=== PATIENT | male | born 1970 | race Caucasian/White ===

== ENCOUNTER 2019-12-15 12:07 | Day surgery (SDC) | payer OTHER, SELFPAY ==
[2019-12-15] VITALS (11 sets, daily range): BP systolic 105–162; BP diastolic 76–99; PULSE 58–101; RESP 16–22; TEMP 36.7–37; O2SAT 95–98; BMI 25.4
--- NOTE | 2019-12-15 12:11 | ED_ITS ---
Entered by Bradley Avina, acting as scribe for Kosta Baron DO HPI - Extremity Problem General: Chief complaint: Extremity Injury, Upper Stated complaint: partial finger amputation Time Seen by Provider: 12/15/19 12:19 History of Present Illness: HPI Narrative: 49 yo male presents with right hand injury, he amputated his right index and right middle finger, R 4th finger tips. Pt states that he was using a grinder operator surface tool and his hand got sucked up into it. Patient has amputated portions of the finger however they are rather small did not appear to be salvageable. MD Complaint: extremity pain Pain Consistency: constant Location: right and upper extremity Associated symptoms: Deny chest pain, fever(s) or rash Review of Systems General: Reports: other (Last meal at 5:30 AM) Const: Denies: fever, chills, body aches, fatigue, malaise or night sweats Eyes: Denies: change in vision or blurry vision ENMT: Denies: throat pain, oral sores/lesions, dental pain, nasal discharge or nasal congestion Card: Denies: chest pain, palpitations, irregular heart rhythm, edema, syncope, shortness of breath on exertion, shortness of breath when lying down or leg pain with exertion Resp: Denies: shortness of breath, productive cough, non-productive cough or wheezing GI: Denies: abdominal pain, nausea, vomiting, vomiting blood, coffee grounds in vomit, difficulty swallowing, heartburn/indigestion, diarrhea, constipation, cramping, blood in stool or black tarry stool : Denies: flank pain, difficulty urinating, painful urination, urinary frequency, urinary urgency, urinary incontinence or blood in urine Skin/Breast: Denies: rash, itching or redness Neuro: Denies: headache, numbness in extremities, weakness in extremities, changes in sensation, lack of coordination, difficulty walking, frequent falls, dizziness, vertigo or confusion Psych: Denies: anxiety, depression, loss of interest, visual hallucinations, auditory hallucinations, suicidal ideation or homicidal ideation Endo: Denies: excessive urination, excessive thirst, tired all the time or cold intolerance Truman/Lymph: Denies: easy bruising, easy bleeding, petechiae, enlarged lymph n odes or tender lymph nodes PFSH ED PFSH: Statuses (acute, chronic, etc) shown below reflect problem list status as previously entered and may not be historically accurate Medical History Traumatic amputation of multiple fingers (Acute) Surgical History H/O removal of cyst (Acute) History of repair of ACL (Acute) Social History Smoking and tobacco status: never smoked Physical Exam Const: COMMON NORMALS: average body habitus, oriented x3 and alert GENERAL APPEARANCE: cooperative, comfortable, well kempt and well developed NUTRITIONAL APPEARANCE: not obese ORIENTATION/CONSCIOUSNESS: Yes awake, Yes oriented to person and Yes oriented to place HENMT: COMMON NORMALS: normocephalic, head/scalp atraumatic, EAC's normal, TM's normal bilaterally, external nose normal, moist oral mucous membranes and oropharynx normal HEAD & SCALP: normocephalic and atraumatic NOSE: external nose normal EXTERNAL AUDITORY CANAL: EAC's normal TYMPANIC MEMBRANE: TM's normal bilaterally MOUTH: oral and palatal mucosa normal, lip normal and tongue normal THROAT: posterior oropharynx normal and tonsils normal Eye: COMMON NORMALS: PERRL, EOMs intact bilaterally, conjunctivae normal and no scleral icterus CONJUNCTIVA: Yes conjunctivae normal PUPIL: Yes PERRL Neck/C-Spine: COMMON NORMALS: full ROM, no lymphadenopathy, supple, no meningeal signs and thyroid normal THYROID: thyroid normal and asymmetrical Lymph: LYMPHATIC: no lymphadenopathy noted Resp: COMMON NORMALS: normal respiratory effort, no retractions, no use of accessory muscles and clear to auscultation bilaterally AUSCULTATION: clear to auscultation bilaterally Cardio: COMMON NORMALS: regular rate and regular rhythm RATE: regular rate RHYTHM: regular rhythm HEART SOUNDS: no murmurs GI: COMMON NORMALS: normal to inspection, nondistended, normoactive bowel sounds, soft to palpation and no hepatosplenomegaly PALPATION: Yes soft and Yes no hepatosplenomegaly : COMMON NORMALS: Yes no CVA tenderness BLADDER/KIDNEY EXAM: Yes no CVA tenderness Back/Pelvis: COMMON NORMALS: no CVA tenderness LUMBAR SPINE/LOWER BACK: Yes normal to inspection Extremity: NARRATIVE EXTREMITY EXAM: The tips of the right second third and fourth fingers have essentially been surgically amputated with clean lines across the bone. There is expound exposed cortex of bone no significant bleeding at this time. Neuro: COMMON NORMALS: oriented x3 SENSORIUM/ORIENTATION: Yes alert, Yes oriented to person and Yes oriented to place MENINGEAL SIGNS: Yes no meningeal signs Psych: APPEARANCE: Yes well kempt Skin: COMMON NORMALS: no rashes or lesions noted and skin turgor normal GENERAL SKIN EXAM: no rashes or lesions noted and turgor normal Course ED course: Patient had tetanus updated given a gram of Ancef pain medications nausea medications IV fluids. Discussed Dr. Reyes he will take the patient directly from ER to outpatient surgery will revise the amputation and create stump with soft tissue coverage. Vital Signs: Vital signs: Vital Signs Temperature 98.4 F 12/15/19 12:14 Pulse Rate 58 L 12/15/19 13:49 Respiratory Rate 16 12/15/19 13:49 Blood Pressure 146/80 12/15/19 13:49 Pulse Oximetry 98 12/15/19 13:49 Discharge Plan Discharge Patient Disposition: Home, Self-Care Clinical Impression: Traumatic amputation of multiple fingers Prescriptions: No Action No Known Home Medications RF: 0 Referrals: Yana Tinoco MD [Primary Care Provider] - Larry Grewal MD [Family Provider] - Activity Restrictions/Additional Instructions: You will be discharged from the emergency room and taken to outpatient surgery will they will provide definitive care for the amputation of the fingertips Dr. Reyes will provide discharge instructions from outpatient surgery. Interventions: ED Discharge Assessment Last Done: 12/15/19 13:49 Discharge Date/Time: 12/15/19 13:50 Coding Level of Care Code ED Computer Forensic Specialist for Chg Fwd Exam Problem Focused The documentation recorded by the Fabrice kemp Kialy, accurately reflects the service I personally performed and the decisions made by , Kosta Baron, Dec 15, 2019 12:07
--- NOTE | 2019-12-15 12:16 | XR_ITS ---
WS: [id number] RIGHT HAND: 3 VIEW(S) TECHNIQUE: PA, oblique and lateral. HISTORY: amputation fingers COMPARISON: None available. Limited evaluation of the fingers. Fingers are held in a flexed position therefore there is overlappi ng bone. Suspicious for amputations involving the terminal tuft of the second, third and fourth finge rs. This can be better evaluated if the fingers can be straightened. Extensive soft tissue edema and bandage material around the fingers. No foreign body. XR/XR hand RT min 3V* [id number] IMPRESSION: Limited evaluation of the fingers due to flexed position. Suspect traumatic amputation involving the terminal jessica of the second, third and fourth fingers. To confirm findings additional radiographic imaging can be performed when the patient's fingers are not bandaged.
[2019-12-15] MEDS: ceFAZolin 1,000 MG in sodium chloride 0.9% (plus) 50 ML 100 MG IV (12:38)
[2019-12-15] MEDS: ondansetron 2 mg/ML SDV 2 mL 4 MG IVP (12:38)
[2019-12-15] MEDS: sodium chloride 0.9% 1,000 ML 999 ML IV (12:38)
[2019-12-15] MEDS: morphine 4 mg/mL SDV 1 mL IVP (12:39)
[2019-12-15] MEDS: tetanus-diphtheria tox (adult) 0.5 mL SDV IM (12:40)
--- NOTE | 2019-12-15 13:45 | P.HP_ITS ---
Providers/Chief Complaint Primary Care Provider: Yana Tinoco Chief Complaint: partial finger amputation History of Present Illness Francesco Acuna is a 49 year old male who was at work and sustained multiple amputations at the level of the DIP joint of the right index long and ring fingers. Date of injury was today. His tetanus status is been updated by emergency room physicians. Review of Systems Eyes: Reports: other (glasses) Card: Reports: other (no history of heart attack/coronary disease); Denies: chest pain Resp: Denies: shortness of breath or productive cough GI: Reports: other (patient has been nothing by mouth for multiple hours); Denies: nausea or vomiting Musc: Reports: extremity pain (due to amputations of right index long and ring fingers) Medications/Allergies Home Medications Medication Instructions Recorded Confirmed Last Taken Type No Known Home Medications 12/15/19 12/15/19 Unknown History Allergies Allergy/AdvReac Type Severity Reaction Status Date / Time No Known Allergies Allergy Verified 12/15/19 12:18 PFSH PFSH: Statuses (acute, chronic, etc) shown below reflect problem list status as previously entered and may not be historically accurate Medical History Traumatic amputation of multiple fingers (Acute) Surgical History H/O removal of cyst (Acute) History of repair of ACL (Acute) Social History Smoking and tobacco status: never smoked Vital Signs Vitals Signs: Last Vital Signs Temp 98.4 F 12/15/19 12:14 Pulse 64 12/15/19 12:14 Resp 18 12/15/19 12:39 BP 162/99 12/15/19 12:14 Pulse Ox 95 12/15/19 12:39 Weight: Weight last 48 hrs Weight 177 lb Physical Exam Const: COMMON NORMALS: healthy appearing, alert and well nourished GENERAL APPEARANCE: cooperative and in distress (mild); not ill appearing and does not appear older than stated age ORIENTATION/CONSCIOUSNESS: Yes awake Neck/C-Spine: GENERAL: Yes trachea midline THYROID: thyroid normal Resp: COMMON NORMALS: normal respiratory effort, no retractions, no use of accessory muscles and clear to auscultation bilaterally AUSCULTATION: clear to auscultation bilaterally, no crackles, no rales, no rhonchi and no wheezes Cardio: COMMON NORMALS: no JVD, regular rate, regular rhythm, S1 normal heart sound and S2 normal heart sound; negative for no murmurs Extremity: NARRATIVE EXTREMITY EXAM: dressing covering right hand which obscures amputations of right index long and ring fingers that are noted by history from emergency physician also x-ray studies RIGHT UPPER EXTREMITY: Yes hand & digits (amputations right index long and ring fingers) Neuro: COMMON NORMALS: oriented x3 SENSORIUM/ORIENTATION: Yes alert, Yes oriented to person and Yes oriented to place Data Imaging^: Xray Ortho: My impression: multiple digital amputations through the distal aspect of the right index long and ring fingers Radiologist's impression: Limited evaluation of the fingers due to flexed position. Suspect traumatic amputation involving the terminal jessica of the second, third and fourth fingers. To confirm findings additional radiographic imaging can be performed when the patient's fingers are not bandaged. A&P Additional A&P Information multiple digit amputations involving the right index long and ring fingers Plan will be to take the patient to surgery today on urgent basis to revise the amputations of the right index long and ring fingers. Tetanus status is been updated by emergency room physician I discussed the patient receiving an axillary block for postoperative pain relief. Coding Level of Care Code Acute Fingerprinter for Jacky Syed
--- NOTE | 2019-12-15 14:03 | ANES.PREANES ---
Pre-Anesthetic Assessment Pre-Anesthetic Assessment: Height/Weight: Height 1.78 m Weight 80.286 kg Temp Pulse Resp BP Pulse Ox 98.4 F 58 L 16 146/80 98 12/15/19 12:14 12/15/19 13:49 12/15/19 13:49 12/15/19 13:49 12/15/19 13:49 Preop Diagnosis: multiple finger amputations right hand Proposed Procedure: Operation Date: 12/15/19 15:30 Proposed Procedures p Amputation Fingers revision(Right) - Willie Reyes DO Familial anesthetic complications: No trouble anesthesia Was Beta Ritchie taken within 24 hours: N/A Last intake: 0530 am (smoothie); black coffee at 0900 Social: Social History: No alcohol and No tobacco Exam: Pre-Anes Outpt Exam: alert, oriented x 3, clear to auscultation bilaterally and regular rate & rhythm Airway: Cervical ROM: WNL MP: 2 Dentition: Chipped Additional comments: missing Pulmonary: Pulmonary: None reported CV/HEM: CV/HEM: None reported : : None reported Hepatic: Hepatic: None reported GI: GI: None reported Metabolic: Metabolic: None reported Musc/skel: Musc/skel: None reported Neuropsych: Neuropsych: None reported Anesthetic Plan: ASA status: I Anesthesia: General and Regional (specify below) PFSH Anesthesia PFSH: Medical History Traumatic amputation of multiple fingers (Acute) Surgical History H/O removal of cyst (Acute) History of repair of ACL (Acute) Social History Smoking and tobacco status: never smoked Data Anesthesia Cardiac Studies: No Data to Display
[2019-12-15] MEDS: sodium chloride 0.9% 1,000 ML 30 ML IV (14:18)
[2019-12-15] MEDS: midazolam 1 mg/mL INJ 2 mL 2 MG IVP (14:21)
--- NOTE | 2019-12-15 14:37 | ANES.PROC ---
Anesthesia Procedures Procedure/Date: 12/15/19 Nerve Block ^: Nerve Block 1: Main Anesthesia: general anesthesia Time Out Performed: Yes Consent: requested by attending/covering physician, risks and benefits reviewed and patient agrees to proceed Nerve block location: axillary (R) Anesthesia monitors applied: pulse oximetry Nerve block position: supine Anesthetic Used: ropivicaine 0.5% and with decadron (4) Amount of anesthesia used (mL): 30 Ultrasound used to: recognize landmarks Nerve Stimulator Used?: No Interscalene/Femoral BLK: 2 stimuplex 22 g needle used for position and inplane approach Injection: neg aspiration of heme and paresthesia +/- Patient Tolerated Procedure: well and no complications Complications: none
--- NOTE | 2019-12-15 18:13 | P.OP_ITS ---
Operative Report Date of procedure: 12/15/19 Preop Diagnosis: multiple finger amputations right hand Post-op diagnosis: same Post-op Findings: traumatic amputations of the right index, long and ring fingers Location of injury at work date of injury 12/15/2019 Procedure Done: revision amputation of right index and ring fingers through level of DIP joint with primary wound closure Revision of right long finger (middle finger) through level of middle phalanx with primary wound closure Implants: not applicable Specimens removed/disposition: soft tissue and bone disposed of in operating room Pathology: none sent Surgeon: Willie Reyes Anesthesia: Ax. Block and general Estimated blood loss (mL): 10 Tourniquet time (min): 77 (at 250 mmHg pressure) Complications: no apparent complications Findings: clean amputations of the right index long and ring fingers due to mechanical instrument No significant soft tissue contamination noted Condition: stable Disposition: PACU Brief History: 49-year-old white male who was at work and stuck his hand into a proper that has a grinding mechanism and his hand unfortunately was sucked into the blades causing him to sustain traumatic amputations of the right index long and ring fingers.is initially evaluated in the [facility] emergency room. Orthopedic consultation was requested. As recommended the patient go to the operating room on an urgent basis to perform revision amputation of the right index long and ring fingers. Risk, benefits potential complications surgery discussed with the patient to include wound healing complications, infection, nerve/blood vessel/tendon injury, possible regrowth of fingernails. Medical complications can include blood clots heart attack, stroke risk up to including . All questions were answered patient agreeable to proceed with surgery. Procedure: patient identified. Surgical site was signed. Surgical permit was signed. Patient received 2 g of Ancef intravenously for prophylaxis. He had a axillary nerve block performed in the right upper extremity by anesthesia team in the preoperative holding area. He was taken back to the operating room. His placed supine operative table. His placed under general anesthesia difficulty. Of his dressing was applied emerge from was removed. He had some pulsatile bleeding and this was treated with applying the tourniquet and elevate the tourniquet 250 mmHg pressure. The patient is in sterilely prepped and draped usual fashion. Procedural pause was performed. We then excised the remaining portion of nail and nail beds from the index and ring fingers. We excised the germinal matrix as the nail early been avulsed off of the right long finger. Then made longitudinal incisions on the radial and ulnar borders of the right index long and ring fingers and then elevated to expose the underlying tissues. Disarticulation of the right index and ring fingers was performed and the long finger nor to obtain coverage underwent amputation through the middle one third of the middle phalanx of the right long finger. There is within irrigated with Betadine-containing saline solution and antibiotic containing saline solution. We then debrided the skin flaps and the bulk skin flaps and primary closure with interrupted sutures of 4-0 nylon. Antibiotic ointment was applied followed by sterile dressings with web roll and a volar splint with the wrist in 30? of extension MCP joints and 70? of flexion and the splint was taken to the tips of the remaining digits. Tourniquet was deflated during application of dressings. The patient was aroused from general anesthesia. He was taken recovery room. He tolerated surgery well. All counts are correct.
== END 2019-12-15 19:31 | disposition home or self-care (01) ==
LOC: ER 13:31 → OR 14:42
PROVIDERS: Emergency Provider Family Medicine; Family Provider Family Medicine; PCP Family Medicine; Visit Provider Orthopaedic Surgery
PROC: (CPT 26951; principal; 2019-12-15 15:30)
DX: S68.120A Partial traumatic metacarpophalangeal amputation of right index finger, initial encounter (principal); S68.122A Partial traumatic metacarpophalangeal amputation of right middle finger, initial encounter; S68.124A Partial traumatic metacarpophalangeal amputation of right ring finger, initial encounter; W31.89XA Contact with other specified machinery, initial encounter
CPT/HCPCS: 26951 ×3; 12345; 73130; 90471; 90472; 90714; 96365; 96374; 99281; J0330; J0690; J1100; J1580; J2001; J2250; J2270; J2405; J2704; J2765; J3010; J3490; J7030

== ENCOUNTER 2019-12-19 15:03 | Outpatient (CLI) | payer OTHER, SELFPAY | END 2019-12-19 15:04 | disposition home or self-care (01) | LOC: SOT 15:05 | PROVIDERS: Family Provider Family Medicine; PCP Family Medicine; Visit Provider Orthopaedic Surgery | DX: Z46.89 Encounter for fitting and adjustment of other specified devices (principal) | CPT/HCPCS: L3923 ==

== ENCOUNTER → 2020-01-13 08:55 | Outpatient (BNVA) | payer OTHER, SELFPAY | PROVIDERS: Family Provider Family Medicine; PCP Family Medicine; Visit Provider Orthopaedic Surgery | DX: S68.610A Complete traumatic transphalangeal amputation of right index finger, initial encounter (principal); S68.622A Partial traumatic transphalangeal amputation of right middle finger, initial encounter; S68.614A Complete traumatic transphalangeal amputation of right ring finger, initial encounter; X58.XXXA Exposure to other specified factors, initial encounter | CPT/HCPCS: 73130 ==

== ENCOUNTER 2023-05-26 10:22 | Outpatient (CLI) | payer OTHER, SELFPAY ==
--- NOTE | 2023-05-26 10:38 | MR_ITS ---
WS: [id number] MRI HEAD WITH CONTRAST TECHNIQUE: Sagittal T1, T2 axial, T2 axial FLAIR, axial susceptibility weighted imaging, axial diffus ion weighted images, and coronal T2 images were obtained. Pre and post-T1 axial and post T1 coronal i mages. ADC and FSPGR images. CLINICAL INFORMATION: VISUAL FIELD SCOTOMA COMPARISON: None. FINDINGS: No evidence of restricted diffusion to suggest acute ischemia. Ventricular system and basal cisterns are patent. Normal posterior fossa. Normal vascular flow voids at the skull base. No extra-axial flui d collections. No evidence of mass or mass effect. Paranasal sinuses and mastoid air cells are well a erated. Normal posterior nasopharynx. Single focus of T2 hyperintensity in the LEFT periventricular white matter. No hemosiderin on suscept ibly weighted images. Normal optic chiasm and pituitary infundibulum. Temporal lobes and hippocampal formations are normal in appearance. Normal cavernous sinuses and Meckel's cave. No abnormal gadolinium enhancement. Prominent occipital collateral venous drainage likely incidental. Visualized dural venous sinuses appear patent. MR/MR head wo/w con [id number] IMPRESSION: 1. No evidence of restricted diffusion to suggest acute ischemia. 2. No suspicious intracranial signal abnormalities. 3. Single focus of T2 hyperintensity in the LEFT periventricular white matter of doubtful clinical significance but can be seen with hypertension, diabetes, and small vessel changes. 4. No hemosiderin on susceptibly weighted images. 5. No abnormal gadolinium enhancement. 6. Normal visualized orbits 7. Normal optic chiasm
[2023-05-26] MEDS: gadobenate dimeglumine 20 mL vial IV (11:40)
== END 2023-05-26 10:23 | disposition home or self-care (01) ==
LOC: RAD 10:28
PROVIDERS: PCP Family Medicine; Visit Provider Family Medicine
DX: H53.419 Scotoma involving central area, unspecified eye (principal)
CPT/HCPCS: 70553; A9577

== ENCOUNTER → 2024-07-09 17:28 | Outpatient (BNVA) | payer OTHER, SELFPAY | PROVIDERS: PCP Family Medicine; Visit Provider Emergency Medicine | DX: X58.XXXA Exposure to other specified factors, initial encounter; S49.92XA Unspecified injury of left shoulder and upper arm, initial encounter | CPT/HCPCS: 73030 ==

== ENCOUNTER → 2024-08-03 10:34 | Outpatient (BNVA) | payer OTHER, SELFPAY | PROVIDERS: PCP Family Medicine; Visit Provider Nurse Practitioner | DX: S40.012A Contusion of left shoulder, initial encounter (principal); V86.99XA Unspecified occupant of other special all-terrain or other off-road motor vehicle injured in nontraffic accident, initial encounter | CPT/HCPCS: 73030 ==